=== PATIENT | male | born 1990 | race Two or more races ===

== ENCOUNTER 2016-03-25 00:42 | Emergency (ER) | payer OTHER ==
[2016-03-25 00:52] VITALS: RESP 16
--- NOTE | 2016-03-25 00:53 | EDPHY ---
H & P Stated Complaint: c/o n/v/d/body aches since 0600 wed HPI/ROS: HPI CHIEF COMPLAINT: Nausea, diarrhea, muscle aches, joint pain, sore throat, ear pain, headache HISTORY OF PRESENT ILLNESS: This patient is a very pleasant 25-year-old male denies any significant medical or surgical history he presents to the emergency room for approximately 12 hours of nausea, diarrhea, sore throat, bilateral ear pain, headache without neck pain, fatigue, muscle aches and joint pain. Patient states otherwise he is healthy he did have watery diarrhea today no vomiting but does feel nauseous. Mainly came in emergency room this evening for muscle aches and joint pain. He does tell me that he just flew back from [place] 3 days ago he denies having any sick contacts or being ill over there. Past Medical History: No significant medical history Past Surgical History: no significant surgical history Social History: denies use of drugs alcohol tobacco products Family History: noncontributory ROS REVIEW OF SYSTEMS: A comprehensive 10 point review of systems is otherwise negative aside from elements mentioned in the history of present illness. Exam Constitutional appears well nontoxic, triage nursing summary reviewed, vital signs reviewed, awake/alert. Eyes normal conjunctivae and sclera, EOMI, PERRLA. HENT bilateral TMs: Erythematous with bulge bilaterally, posterior pharynx is erythematous no exudate, uvula midline, atraumatic, moist mucus membranes, no epistaxis, neck supple/ no meningismus, no raccoon eyes. Respiratory clear to auscultation bilaterally, normal breath sounds, no respiratory distress, no wheezing. Cardiovascular rate normal, regular rhythm, no murmur, no edema, distal pulses normal. Gastrointestinal soft, non-tender, no rebound, no guarding, normal bowel sounds, no distension, no pulsatile mass. Genitourinary no CVA tenderness. Musculoskeletal no midline vertebral tenderness, full range of motion, no calf swelling, no tenderness of extremities, no meningismus, good pulses, neurovascularly intact. Skin pink, warm, & dry, no rash, skin atraumatic. Neurologic awake, alert and oriented x 3, AAOx3, moves all 4 extremities equally, motor intact, sensory intact, CN II-XII intact, normal cerebellar, normal vision, normal speech. No meningeal signs. Psychiatric normal mood/affect. Heme/Lymph/Immune no lymphadenopathy. Differential Diagnosis: Includes but is not limited to and in no particular order: URI, viral syndrome, influenza, strep pharyngitis, dehydration, electrolyte abnormality, pancreatitis, enteritis, doubt meningitis given nontoxic appearing, no meningeal signs, neck supple, no significant headache Medical Decision Making: The patient had an IV established obtain blood work will have a rapid strep as well as influenza performed. He appears well nontoxic no evidence of meningitis on exam specifically no neck pain or stiff neck. He is nontoxic appearing. He does have inflammation of bilateral TMs most likely consistent with a viral syndrome or otitis media. Re-evaluation: 0337: Re-evaluation this time this patient is resting comfortably appears well nontoxic feels much better after IV fluids. Blood work is reassuring mild leukocytosis, negative flu, negative strep patient denies respiratory symptoms. I will treat him for acute otitis media bilaterally given his bilateral ear pain and a bulging erythematous TMs. He does understand return emergency room if develops worsening symptoms includes worsening headache, fever, vomiting questions or concerns. He does appear very well and he is comfortable this plan and comfortable at discharge. Source: Patient - Medical/Surgical History Hx Asthma: Yes Hx Chronic Respiratory Disease: No Hx Diabetes: No Hx Cardiac Disease: No Hx Renal Disease: No Hx Cirrhosis: No Hx Alcoholism: No Hx HIV/AIDS: No Hx Splenectomy or Spleen Trauma: No Other PMH: asthma, surgical removal of polydinal cyst - Social History Smoking Status: Never smoked Constitutional: Initial Vital Signs Temperature (C) 37 C 03/25/16 00:47 Heart Rate 109 H 03/25/16 00:47 Respiratory Rate 16 03/25/16 00:47 Blood Pressure 156/94 H 03/25/16 00:47 O2 Sat (%) 93 03/25/16 00:47 O2 Delivery Mode Room Air Allergies/Adverse Reactions: No Known Allergies Allergy (Unverified 03/25/16 00:52) Home Medications: Medication Instructions Recorded Albuterol 03/25/16 Amoxicillin 500 mg PO TID 7 Days 03/25/16 Medical Decision Making - Data Points Laboratory Results: Laboratory Results 03/25/16 01:01 03/25/16 01:01 03/25/16 03/25/16 03/25/16 Unknown 02:30 01:20 WBC RBC Hgb Hct MCV MCH MCHC RDW Plt Count MPV Neut % (Auto) Lymph % (Auto) Hawkins % (Auto) Eos % (Auto) Baso % (Auto) Nucleat RBC Rel Count Absolute Neuts (auto) Absolute Lymphs (auto) Absolute Monos (auto) Absolute Eos (auto) Absolute Basos (auto) Absolute Nucleated RBC Immature Gran % Immature Gran # Sodium Potassium Chloride Carbon Dioxide Anion Gap BUN Creatinine Estimated GFR Glucose Calcium Total Bilirubin Conjugated Bilirubin Unconjugated Bilirubin AST ALT Alkaline Phosphatase Total Protein Albumin Lipase Urine Color YELLOW Urine Appearance HAZY Urine pH 5.0 (5.0-7.5) Ur Specific [place] 1.024 (1.002-1.030) Urine Protein NEGATIVE (NEGATIVE) Urine Ketones 1+ H (NEGATIVE) Urine Blood NEGATIVE (NEGATIVE) Urine Nitrate NEGATIVE (NEGATIVE) Urine Bilirubin NEGATIVE (NEGATIVE) Urine Urobilinogen 4.0 H EU (0.2-1.0) Ur Leukocyte Esterase NEGATIVE (NEGATIVE) Ur Culture Indicated? NOT INDICATED (NI) Urine Glucose NEGATIVE (NEGATIVE) Influenza Typ A,B (DFA) Group A Strep Screen NEGATIVE (NEGATIVE) Group A Strep DNA Pending 03/25/16 03/25/16 01:10 01:01 WBC 9.58 H 10^3/uL (3.80-9.50) RBC 6.25 10^6/uL (4.40-6.38) Hgb 17.2 g/dL (13.7-17.5) Hct 50.9 % (40.0-51.0) MCV 81.4 L fL (81.5-99.8) MCH 27.5 L pg (27.9-34.1) MCHC 33.8 g/dL (32.4-36.7) RDW 13.2 % (11.5-15.2) Plt Count 300 10^3/uL (150-400) MPV 10.1 fL (8.7-11.7) Neut % (Auto) 77.0 H % (39.3-74.2) Lymph % (Auto) 11.8 L % (15.0-45.0) Hawkins % (Auto) 10.2 % (4.5-13.0) Eos % (Auto) 0.4 L % (0.6-7.6) Baso % (Auto) 0.2 L % (0.3-1.7) Nucleat RBC Rel Count 0.0 % (0.0-0.2) Absolute Neuts (auto) 7.37 H 10^3/uL (1.70-6.50) Absolute Lymphs (auto) 1.13 10^3/uL (1.00-3.00) Absolute Monos (auto) 0.98 H 10^3/uL (0.30-0.80) Absolute Eos (auto) 0.04 10^3/uL (0.03-0.40) Absolute Basos (auto) 0.02 10^3/uL (0.02-0.10) Absolute Nucleated RBC 0.00 10^3/uL (0-0.01) Immature Gran % 0.4 % (0.0-1.1) Immature Gran # 0.04 10^3/uL (0.00-0.10) Sodium 140 mEq/L (134-144) Potassium 4.3 mEq/L (3.5-5.2) Chloride 103 mEq/L (97-110) Carbon Dioxide 23 mEq/l (22-31) Anion Gap 14 mEq/L (8-16) BUN 13 mg/dL (7-23) Creatinine 1.1 mg/dL (0.7-1.3) Estimated GFR > 60 Glucose 98 mg/dL (70-100) Calcium 8.7 mg/dL (8.5-10.4) Total Bilirubin 1.4 mg/dL (0.1-1.4) Conjugated Bilirubin 0.4 mg/dL (0.0-0.5) Unconjugated Bilirubin 1.0 mg/dL (0.0-1.1) AST 33 IU/L (17-59) ALT 35 IU/L (21-72) Alkaline Phosphatase 126 IU/L (38-126) Total Protein 7.2 g/dL (6.3-8.2) Albumin 4.0 g/dL (3.5-5.0) Lipase 66.0 IU/L (23-300) Urine Color Urine Appearance Urine pH Ur Specific [place] Urine Protein Urine Ketones Urine Blood Urine Nitrate Urine Bilirubin Urine Urobilinogen Ur Leukocyte Esterase Ur Culture Indicated? Urine Glucose Influenza Typ A,B (DFA) NEGATIVE FOR FLU (NEGATIVE) Group A Strep Screen Group A Strep DNA Medications Given: Discontinued Medications Sodium Chloride (Ns) 2,000 mls @ 0 mls/hr IV ONCE ONE PRN Reason: Wide Open Stop: 03/25/16 01:04 Last Admin: 03/25/16 01:16 Dose: 2,000 mls Ondansetron HCl (Zofran) 4 mg IVP EDNOW ONE Stop: 03/25/16 01:04 Last Admin: 03/25/16 01:16 Dose: 4 mg Departure - Departure Disposition: Home, Routine, Self-Care Clinical Impression: Viral syndrome Otitis media Qualifiers: Otitis media type: suppurative Laterality: bilateral Chronicity: acute Recurrence: not specified as recurrent Spontaneous tympanic membrane rupture: without spontaneous rupture Qualifier Code: (H66.003) Acute suppurative otitis media without spontaneous rupture of ear drum, bilateral Condition: Good Instructions: Viral Syndrome (ED), Otitis Media (ED) Additional Instructions: 1. Stay well-hydrated 2. return to the emergency room if he develops worsening symptoms questions or concerns. 3. please take antibiotics as prescribed. 4. You have an ear infection. Referrals: NONE *PRIMARY CARE P,. [Primary Care Provider] - As per Instructions Prescriptions: Amoxicillin 500 mg PO TID 7 Days
[2016-03-25] MEDS ORDERED: ONDANSETRON 4 MG/2 ML VIAL IVP ONE (01:03)
[2016-03-25] MEDS ORDERED: NS 2,000 ML IV ONE (01:03)
[2016-03-25 01:12] LABS: % IMMATURE GRANULYOCYTES 0.4 % (0.0-1.1); ABSOLUTE IMMATURE GRANULOCYTES 0.04 10^3/uL (0.00-0.10); ADD DIFF? NO; ADD MORPH? NO; ADD SCAN? NO; ATYPICAL LYMPHOCYTE FLAG 0 (0-99); FRAGMENT RBC FLAG 0 (0-99); HEMATOCRIT 50.9 % (40.0-51.0); HEMOGLOBIN 17.2 g/dL (13.7-17.5); LEFT SHIFT FLG 0 (0-99); LIPEMIA HEMOLYSIS FLAG 90 (0-99); MEAN CELL HEMOGLOBIN 27.5 pg (27.9-34.1); MEAN CELL HEMOGLOBIN CONCENTR. 33.8 g/dL (32.4-36.7); MEAN CELL VOLUME 81.4 fL (81.5-99.8); MEAN PLATELET VOLUME 10.1 fL (8.7-11.7); PLATELET CLUMPS FLAG 10 (0-99); PLATELET COUNT 300 10^3/uL (150-400); RED BLOOD CELL COUNT 6.25 10^6/uL (4.40-6.38); RED CELL DISTRIBUTION WIDTH 13.2 % (11.5-15.2)
[2016-03-25 01:35] LABS: ALANINE AMINOTRANSFERASE 35 IU/L (21-72); ALKALINE PHOSPHATASE 126 IU/L (38-126); ANION GAP 14 mEq/L (8-16); ASPARTATE AMINOTRANSFERASE 33 IU/L (17-59); BILIRUBIN,TOTAL 1.4 mg/dL (0.1-1.4); BILIRUBIN-CONJUGATED 0.4 mg/dL (0.0-0.5); CALCIUM 8.7 mg/dL (8.5-10.4); CARBON DIOXIDE 23 mEq/l (22-31); CHLORIDE 103 mEq/L (97-110); CREATININE 1.1 mg/dL (0.7-1.3); GLOMERULAR FILTRATION RATE > 60; GLUCOSE 98 mg/dL (70-100); POTASSIUM 4.3 mEq/L (3.5-5.2); SODIUM 140 mEq/L (134-144); TOTAL PROTEIN 7.2 g/dL (6.3-8.2)
[2016-03-25 02:46] LABS: COLOR YELLOW; LEUKOCYTE ESTERASE,URINE NEGATIVE (NEGATIVE); NITRITE,URINE NEGATIVE (NEGATIVE)
[2016-03-25 03:56] VITALS: O2SAT 97
[2016-03-25 03:57] VITALS: BP 126/70; PULSE 85; TEMP 98.1
== END 2016-03-25 03:58 | disposition home or self-care (01) ==
DX: B34.9 Viral infection, unspecified (principal); H66.003 Acute suppurative otitis media without spontaneous rupture of ear drum, bilateral; J45.909 Unspecified asthma, uncomplicated
CPT/HCPCS: 96374; J2405

== ENCOUNTER 2016-04-25 15:24 | Emergency (ER) | payer OTHER ==
[2016-04-25 15:31] VITALS: BP 134/82; PULSE 88; RESP 16; TEMP 97.5; O2SAT 96
--- NOTE | 2016-04-25 16:08 | EDPHY ---
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 No pain with defecation. No back pain. No blood or pus in stool. No fever no chills. No flu-like symptoms. No myalgias. PHYSICAL EXAM (Prior to examination, patient consented to physical exam, hands were washed and my usual and customary physical exam procedures followed) 1) GENERAL: Well-developed, well-nourished, alert and oriented. Appears to be in no acute distress. 2) HEAD: Normocephalic 3) HEENT: sclera anicteric 4) LUNGS: Breathing comfortably. 5) SKIN: at the cleft of the patient's buttock he has erythema with induration and no central fluctuance. There is no extension into the perianal region. There is no drainage. Smoking Status: Never smoked Constitutional: Initial Vital Signs Temperature (C) 36.4 C 04/25/16 15:25 Heart Rate 88 04/25/16 15:25 Respiratory Rate 16 04/25/16 15:25 Blood Pressure 134/82 H 04/25/16 15:25 O2 Sat (%) 96 04/25/16 15:25 O2 Delivery Mode Room Air Allergies/Adverse Reactions: No Known Allergies Allergy (Verified 04/25/16 15:25) Home Medications: Medication Instructions Recorded Albuterol 03/25/16 Cephalexin [Keflex] 500 mg PO QID 10 Days 04/25/16 Hydrocodone/APAP 5/325 [[place] 1 tab PO Q6 PRN #7 tab 04/25/16 5/325 (RX)] Sulfamethox/Tmp 800/160 mg 1 tab PO BID@1000,2200 10 Days 04/25/16 [Bactrim Ds] MDM/Departure - MDM ED Course/Re-evaluation: Doubt perianal or perirectal abscess. He has prior history of recurrent pilonidal abscess. There is no current evidence of abscess although there is erythema and induration with no central areas I can identify for incision and drainage. Have recommended warm compresses on the area, started on oral antibiotics and recommend follow up with on-call general surgery. In the meantime should she develop new or worsening symptoms, fever, chills, back pain , pain with defecation or any other symptoms he is to return to the ER immediately. He feels comfortable with this plan. - Depart Disposition: Home, Routine, Self-Care Clinical Impression: Pilonidal cyst Condition: Good Instructions: Pilonidal Cyst (ED) Additional Instructions: Return to the ER if you develop fever, chills, nausea, vomiting, pain with defecation, worsening pain or any other symptoms that concern you. Keep warm compresses on the area 5 times per day. Take warm baths of possible Prescriptions: Cephalexin [Keflex] 500 mg PO QID 10 Days Hydrocodone/APAP 5/325 [[place] 5/325 (RX)] 1 tab PO Q6 PRN #7 tab PRN Reason: Pain, Severe Sulfamethox/Tmp 800/160 mg [Bactrim Ds] 1 tab PO BID@1000,2200 10 Days Referrals: Patrizia Tate MD [Medical Doctor] - 1-2 days without fail
== END 2016-04-25 16:36 | disposition home or self-care (01) ==
DX: L05.91 Pilonidal cyst without abscess (principal)

== ENCOUNTER 2017-05-09 20:20 | Emergency (ER) | payer OTHER ==
[2017-05-09 20:29] VITALS: BP 143/82; PULSE 80; RESP 16; TEMP 98.4; O2SAT 93
--- NOTE | 2017-05-09 20:53 | EDPHY ---
H & P Smoking Status: Never smoked Time Seen by Provider: 05/09/17 20:35 HPI/ROS: CHIEF COMPLAINT: Odontalgia HISTORY OF PRESENT ILLNESS: 27-year-old male ongoing complaints of right mandibular 3rd molar pain due for an extraction soon. Has an appoint with his dentist tomorrow (Tuesday) however complaining of pain today and therefore comes to the ER. This has been ongoing issue for the patient. No fever no chills. No fetid odor. No foul taste in mouth. No facial swelling. PHYSICAL EXAM (Prior to examination, patient consented to physical exam, hands were washed and my usual and customary physical exam procedures followed) 1) GENERAL: Well-developed, well-nourished, alert and oriented. Appears uncomfortable. 2) HEAD: Normocephalic 3) HEENT: sclera anicteric. Symmetrical faces. Nasolabial folds are symmetrical. Tender to percussion right mandibular 3rd molar with no evidence of apical abscess. Floor of mouth soft with no evidence of Gallito's angina. Submental and submandibular spaces are soft no induration. 4) LUNGS: Breathing comfortably. (Kathya Joseph) Constitutional: Initial Vital Signs Temperature (C) 36.9 C 05/09/17 20:26 Heart Rate 80 05/09/17 20:26 Respiratory Rate 16 05/09/17 20:26 Blood Pressure 143/82 H 05/09/17 20:26 O2 Sat (%) 93 05/09/17 20:26 O2 Delivery Mode Nasal Cannula Allergies/Adverse Reactions: No Known Allergies Allergy (Verified 05/09/17 20:29) Home Medications: Medication Instructions Recorded Amoxicillin Trihydrate 500 mg PO Q8 7 Days cap 05/09/17 [Amoxicillin 500mg cap] Hydrocodone/APAP 5/325 [[place] 1 tab PO Q6 PRN #7 tab 05/09/17 5/325 (RX)] Omeprazole 05/09/17 MDM/Departure - MDM Procedures: Procedure: Dental nerve block Indication: Odontalgia Indications risks benefits of procedure and medication discussed with patient and he consents. I believe patient to have decision-making capacity. 0.5% bupivacaine with epinephrine administered by myself in usual and customary fashion achieving anesthesia. Patient tolerated procedure well. (Kathya Joseph ) Medications Given: Discontinued Medications Hydrocodone Bitart/Acetaminophen ([place] 5/325mg Prepack#6) 1 btl TAKEHOME EDNOW ONE Stop: 05/09/17 20:56 Last Admin: 05/09/17 21:06 Dose: 1 btl Amoxicillin (Amoxil Chewable 250 Mg Prepack#4) 1 btl TAKEHOME EDNOW ONE PRN Reason: Protocol Stop: 05/09/17 20:56 Last Admin: 05/09/17 21:07 Dose: 1 btl ED Course/Re-evaluation: 8:55 p.m. Care of patient under supervision of secondary supervising physician Dr Melendez . Doubt Gallito's angina. Doubt deep space infection. Recommend he keep his appoint with dentist tomorrow morning. Usual and customary odontogenic precautions and instructions provided.. (Kathya Joesph) The patient was evaluated and managed by the Physician Mailroom Manager. My co- signature indicates that I have reviewed this chart and I agree with the findings and plan of care as documented. I am the secondary supervising physician. (Tatiana Melendez) - Depart Disposition: Home, Routine, Self-Care Clinical Impression: Odontalgia Condition: Good Instructions: Hydrocodone/Acetaminophen (By mouth), Amoxicillin (By mouth), Toothache (ED) Additional Instructions: Return to the ER immediately if you cannot swallow, have drooling, fevers, neck stiffness, cannot open your jaw, or any other symptoms that concern you. Stand Alone Forms: Statement of Treatment Prescriptions: Amoxicillin Trihydrate [Amoxicillin 500mg cap] 500 mg PO Q8 7 Days cap Hydrocodone/APAP 5/325 [[place] 5/325 (RX)] 1 tab PO Q6 PRN #7 tab PRN Reason: Pain, Severe Referrals: Keep, your appointment with dentist tomorrow morning [Other] - As per Instructions
[2017-05-09] MEDS ORDERED: HYDROCOD/APAP 5/325 PREPACK#6 BTL TAKEHOME ONE (20:55)
[2017-05-09] MEDS ORDERED: AMOXICILLIN 250 MG PREPACK#4 BTL TAKEHOME ONE (20:55)
== END 2017-05-09 21:12 | disposition home or self-care (01) ==
PROC: 3E0T3BZ Introduction of Anesthetic Agent into Peripheral Nerves and Plexi, Percutaneous Approach (ICD-10-PCS; principal; 2017-05-09)
DX: K08.89 Other specified disorders of teeth and supporting structures (principal)